=== PATIENT | male | born 1965 | race African-American/Black ===

== ENCOUNTER 2016-07-26 08:09 | Emergency (ER) | payer MEDICAID ==
[~2016-07-26] VITALS: Ht 175.3 cm; Wt 67.4 kg
[2016-07-26 08:09] VITALS: BP 132/84
== END 2016-07-26 09:14 | disposition home or self-care (01) ==
LOC: ED 09:00
DX: B35.3 Tinea pedis (principal); F12.10 Cannabis abuse, uncomplicated
CPT/HCPCS: 99283

== ENCOUNTER 2016-09-07 20:04 | Emergency (ER) | payer MEDICAID ==
[~2016-09-07] VITALS: Ht 175.3 cm; Wt 65.8 kg
[2016-09-07 20:06] VITALS: BP 121/79
[2016-09-07] MEDS ORDERED: OMEP20TA62 PO (20:41)
== END 2016-09-07 21:27 | disposition home or self-care (01) ==
LOC: ED 20:21
DX: R30.0 Dysuria (principal); R35.0 Frequency of micturition; K21.9 Gastro-esophageal reflux disease without esophagitis; Z59.0 Homelessness
CPT/HCPCS: 81001; 87086; 99284

== ENCOUNTER 2017-01-10 15:37 | Emergency (ER) | payer MEDICAID ==
[~2017-01-10] VITALS: Ht 175.3 cm; Wt 66.0 kg
[~2017-01-10 15:37] MED LIST: OMEP20TA62 PO
[2017-01-10 17:06] LABS: HEMATOCRIT 39.9 % (39.2-51.8); HEMOGLOBIN 13.6 g/dL (13.7-18.0); WHITE BLOOD COUNT 9.7 x10^3/uL (3.4-10)
[2017-01-10 17:17] LABS: BLOOD UREA NITROGEN 10 mg/dL (7-18)
[2017-01-10 17:20] LABS: ASPARTATE AMINO TRANSFERASE 20 U/L (15-37)
[2017-01-10 17:33] VITALS: BP 127/81
== END 2017-01-10 18:45 | disposition home or self-care (01) ==
LOC: ED 18:15
DX: R30.0 Dysuria (principal)
CPT/HCPCS: 36415; 80053; 81001; 85025; 87086; 99284

== ENCOUNTER → 2017-01-17 | Emergency (ER) | payer MEDICAID ==
[~2017-01-17] VITALS: Ht 175.3 cm; Wt 69.9 kg
[~2017-01-17] MED LIST changes: +AZITHROMYCIN 500 MG TABLET ONE; +AZITHROMYCIN 500 MG TABLET PO ONE; +CEFTRIAXONE 250 MG IM ONE
[2017-01-17 15:43] VITALS: BP 112/71
== END ==
LOC: ED 17:54
DX: N34.1 Nonspecific urethritis (principal)
CPT/HCPCS: 81003; 87491; 87591; 96372; 99284; J0696

== ENCOUNTER 2017-03-24 18:03 | Emergency (ER) | payer MEDICAID ==
[~2017-03-24] VITALS: Ht 175.3 cm; Wt 65.3 kg
[~2017-03-24 18:03] MED LIST changes: -AZITHROMYCIN 500 MG TABLET ONE; -AZITHROMYCIN 500 MG TABLET PO ONE; -CEFTRIAXONE 250 MG IM ONE
[2017-03-24 18:14] VITALS: BP 135/84
== END 2017-03-24 20:39 | disposition home or self-care (01) ==
LOC: ED 20:33
DX: M25.461 Effusion, right knee (principal)
CPT/HCPCS: 99281

== ENCOUNTER 2017-05-29 16:18 | Emergency (ER) | payer MEDICAID ==
[~2017-05-29] VITALS: Ht 175.3 cm; Wt 65.0 kg
[2017-05-29 16:19] VITALS: BP 156/86
[2017-05-29 16:57] LABS: BASOPHILS # (AUTO) 0.09 x10^3/uL (0-0.1); BASOPHILS % (AUTO) 1 % (0-1); EOSINOPHILS # (AUTO) 0.03 x10^3/uL (0-0.4); EOSINOPHILS % (AUTO) 0 % (1-7); LYMPHOCYTES # (AUTO) 1.85 x10^3/uL (1-3.4); LYMPHOCYTES % (AUTO) 15 % (22-44); MD NO; MEAN CORPUSCULAR HEMOGLOBIN 31.3 pg (27.5-34.5); MEAN CORPUSCULAR HGB CONC 34.1 g/dL (33.2-36.2); MEAN CORPUSCULAR VOLUME 91.8 fL (81-97); MEAN PLATELET VOLUME 8.9 fL (7.4-10.4); MONOCYTES # (AUTO) 1.33 x10^3/uL (0.2-0.8); MONOCYTES % (AUTO) 11 % (2-9); NEUTROPHILS # (AUTO) 8.79 x10^3/uL (1.8-6.8); NEUTROPHILS % (AUTO) 73 % (42-75); PLATELET COUNT 242 x10^3/uL (130-400); RED CELL DISTRIBUTION WIDTH 14.3 % (9.4-14.8)
[2017-05-29 17:01] LABS: ALBUMIN 3.7 g/dL (3.4-5.0); ANION GAP 10 mmol/L (5-15); CHLORIDE 108 mmol/L (98-107); CREATININE 0.92 mg/dL (0.7-1.3)
[2017-05-29] MEDS ORDERED: CEFTRIAXONE 250 MG IM ONE (17:30)
[2017-05-29] MEDS ORDERED: AZITHROMYCIN 500 MG TABLET PO ONE (17:30)
[2017-05-29 17:38] LABS: MICROSCOPIC NOT IND
[2017-05-29 17:40] LABS: CULTURE INDICATED? NO
[2017-05-29] MEDS ORDERED: AZITHROMYCIN 250 MG TABLET ONE (17:44)
[2017-05-29] MEDS ORDERED: CEFTRIAXONE 250 MG ONE (17:44)
[2017-05-29] MEDS ORDERED: LIDOCAINE-MPF 1%, 5ML ONE (17:45)
== END 2017-05-29 18:32 | disposition home or self-care (01) ==
LOC: ED 18:26
DX: R30.0 Dysuria (principal)
CPT/HCPCS: 36415; 80048; 81003; 82040; 85025; 87491; 87591; 96372; 99284; J0696

== ENCOUNTER 2017-06-13 00:47 | Emergency (ER) | payer MEDICAID ==
[~2017-06-13] VITALS: Ht 175.3 cm; Wt 68.4 kg
[~2017-06-13 00:47] MED LIST changes: +ATEN25TA PO; +RANI-276 PO
[2017-06-13 00:49] VITALS: BP 146/91
[2017-06-13] MEDS ORDERED: KETOROLAC 30 MG/1 ML IM ONE (01:30)
[2017-06-13] MEDS ORDERED: METHOCARBAMOL 750 MG TABLET PO ONE (01:30)
[2017-06-13] MEDS ORDERED: KETOROLAC 30 MG/1 ML ONE (01:47)
[2017-06-13] MEDS ORDERED: METHOCARBAMOL 750 MG TABLET ONE (01:47)
== END 2017-06-13 02:37 | disposition home or self-care (01) ==
LOC: ED 01:19
DX: S46.912A Strain of unspecified muscle, fascia and tendon at shoulder and upper arm level, left arm, initial encounter (principal); X58.XXXA Exposure to other specified factors, initial encounter; Y93.89 Activity, other specified; Y92.009 Unspecified place in unspecified non-institutional (private) residence as the place of occurrence of the external cause; Y99.8 Other external cause status
CPT/HCPCS: 96372; 99283; J1885

== ENCOUNTER 2017-07-24 12:44 | Emergency (ER) | payer MEDICAID ==
[~2017-07-24] VITALS: Ht 175.3 cm; Wt 63.0 kg
[2017-07-24 12:52] VITALS: BP 94/57
[2017-07-24] MEDS ORDERED: MIRT15TA4 PO (13:54)
[2017-07-24] MEDS ORDERED: AMLO5TAB2 PO (13:54)
[2017-07-24] MEDS ORDERED: CALC500T PO (13:54)
[2017-07-24] MEDS ORDERED: TRAM50TA2 PO (13:54)
[2017-07-24] MEDS ORDERED: POTA10TA11 PO (13:54)
[2017-07-24 14:17] LABS: MICROSCOPIC NOT IND
[2017-07-24 14:21] LABS: CULTURE INDICATED? NO
[2017-07-24 14:27] LABS: ALBUMIN 3.5 g/dL (3.4-5.0); ANION GAP 5 mmol/L (5-15); CALCIUM 8.6 mg/dL (8.5-10.1); CHLORIDE 108 mmol/L (98-107); CREATININE 1.45 mg/dL (0.7-1.3)
[2017-07-24 14:30] LABS: BASOPHILS # (AUTO) 0.03 x10^3/uL (0-0.1); BASOPHILS % (AUTO) 0 % (0-1); EOSINOPHILS # (AUTO) 0.08 x10^3/uL (0-0.4); EOSINOPHILS % (AUTO) 1 % (1-7); LYMPHOCYTES # (AUTO) 1.02 x10^3/uL (1-3.4); LYMPHOCYTES % (AUTO) 12 % (22-44); MD NO; MEAN CORPUSCULAR HEMOGLOBIN 31.6 pg (27.5-34.5); MEAN CORPUSCULAR VOLUME 92.7 fL (81-97); MEAN PLATELET VOLUME 8.9 fL (7.4-10.4); MONOCYTES # (AUTO) 0.84 x10^3/uL (0.2-0.8); MONOCYTES % (AUTO) 10 % (2-9); NEUTROPHILS # (AUTO) 6.87 x10^3/uL (1.8-6.8); NEUTROPHILS % (AUTO) 78 % (42-75); PLATELET COUNT 250 x10^3/uL (130-400); RED BLOOD COUNT 4.63 x10^6/uL (4.38-5.82); RED CELL DISTRIBUTION WIDTH 13.7 % (9.4-14.8)
== END 2017-07-24 15:27 | disposition home or self-care (01) ==
LOC: ED 14:14
DX: N34.2 Other urethritis (principal); I10 Essential (primary) hypertension
CPT/HCPCS: 36415; 74176; 80048; 81003; 82040; 85025; 99285

== ENCOUNTER 2017-09-06 08:14 | Emergency (ER) | payer MEDICAID ==
[~2017-09-06] VITALS: Ht 175.3 cm; Wt 64.0 kg
[~2017-09-06 08:14] MED LIST changes: +AMLO5TAB2 PO; +CALC500T PO; +MIRT15TA4 PO; +POTA10TA11 PO; +TRAM50TA2 PO
[2017-09-06 08:16] VITALS: BP 96/71
[2017-09-06 08:58] LABS: BASOPHILS # (AUTO) 0.02 x10^3/uL (0-0.1); BASOPHILS % (AUTO) 0 % (0-1); EOSINOPHILS # (AUTO) 0.25 x10^3/uL (0-0.4); EOSINOPHILS % (AUTO) 3 % (1-7); LYMPHOCYTES % (AUTO) 16 % (22-44); MD NO; MEAN CORPUSCULAR HEMOGLOBIN 30.6 pg (27.5-34.5); MEAN CORPUSCULAR HGB CONC 33.4 g/dL (33.2-36.2); MEAN CORPUSCULAR VOLUME 91.7 fL (81-97); MEAN PLATELET VOLUME 7.9 fL (7.4-10.4); MONOCYTES # (AUTO) 1.03 x10^3/uL (0.2-0.8); MONOCYTES % (AUTO) 13 % (2-9); NEUTROPHILS # (AUTO) 5.65 x10^3/uL (1.8-6.8); NEUTROPHILS % (AUTO) 68 % (42-75); PLATELET COUNT 398 x10^3/uL (130-400); RED BLOOD COUNT 3.53 x10^6/uL (4.38-5.82); RED CELL DISTRIBUTION WIDTH 13.7 % (9.4-14.8)
[2017-09-06 09:10] LABS: ALBUMIN 3.1 g/dL (3.4-5.0); ANION GAP 8 mmol/L (5-15); CALCIUM 8.5 mg/dL (8.5-10.1); CHLORIDE 107 mmol/L (98-107)
== END 2017-09-06 11:03 | disposition home or self-care (01) ==
LOC: ED 09:59
DX: M25.561 Pain in right knee (principal); M96.89 Other intraoperative and postprocedural complications and disorders of the musculoskeletal system; R60.1 Generalized edema; I10 Essential (primary) hypertension; Z88.5 Allergy status to narcotic agent
CPT/HCPCS: 36415; 80048; 82040; 85025; 93005; 99285

== ENCOUNTER 2017-11-20 11:16 | Emergency (ER) | payer MEDICAID ==
[~2017-11-20] VITALS: Ht 175.3 cm; Wt 65.3 kg
[~2017-11-20 11:16] MED LIST changes: -AMLO5TAB2 PO; +AMLO5TAB7 PO
[2017-11-20 11:19] VITALS: BP 107/73
[2017-11-20 12:15] LABS: BASOPHILS # (AUTO) 0.03 x10^3/uL (0-0.1); BASOPHILS % (AUTO) 0 % (0-1); EOSINOPHILS # (AUTO) 0.08 x10^3/uL (0-0.4); EOSINOPHILS % (AUTO) 1 % (1-7); LYMPHOCYTES # (AUTO) 1.76 x10^3/uL (1-3.4); LYMPHOCYTES % (AUTO) 22 % (22-44); MD NO; MEAN CORPUSCULAR HEMOGLOBIN 31.3 pg (27.5-34.5); MEAN CORPUSCULAR HGB CONC 34.2 g/dL (33.2-36.2); MEAN CORPUSCULAR VOLUME 91.7 fL (81-97); MEAN PLATELET VOLUME 8.8 fL (7.4-10.4); MONOCYTES # (AUTO) 0.82 x10^3/uL (0.2-0.8); MONOCYTES % (AUTO) 11 % (2-9); NEUTROPHILS # (AUTO) 5.17 x10^3/uL (1.8-6.8); NEUTROPHILS % (AUTO) 66 % (42-75); PLATELET COUNT 253 x10^3/uL (130-400); RED BLOOD COUNT 4.66 x10^6/uL (4.38-5.82); RED CELL DISTRIBUTION WIDTH 14.9 % (9.4-14.8)
[2017-11-20 12:25] LABS: ALBUMIN 3.5 g/dL (3.4-5.0); ANION GAP 6 mmol/L (5-15); CALCIUM 9.2 mg/dL (8.5-10.1); CHLORIDE 102 mmol/L (98-107)
[2017-11-20 12:31] LABS: CREATININE 1.18 mg/dL (0.7-1.3); TROPONIN I < 0.015 ng/mL (0.000-0.045)
== END 2017-11-20 13:12 | disposition home or self-care (01) ==
LOC: ED 12:41
DX: J20.9 Acute bronchitis, unspecified (principal); K21.9 Gastro-esophageal reflux disease without esophagitis; Z96.651 Presence of right artificial knee joint
CPT/HCPCS: 36415; 71045; 80048; 82040; 84484; 85025; 93005; 99285

== ENCOUNTER 2018-09-23 17:29 | Emergency (ER) | payer MEDICAID ==
[~2018-09-23] VITALS: Ht 175.3 cm; Wt 68.0 kg
[2018-09-23 17:37] VITALS: BP 88/55
== END 2018-09-23 18:35 | disposition home or self-care (01) ==
LOC: ED 18:20
DX: G89.11 Acute pain due to trauma (principal); R07.89 Other chest pain; M62.838 Other muscle spasm; S49.92XA Unspecified injury of left shoulder and upper arm, initial encounter; H60.502 Unspecified acute noninfective otitis externa, left ear; K21.9 Gastro-esophageal reflux disease without esophagitis; F17.200 Nicotine dependence, unspecified, uncomplicated; V49.59XA Passenger injured in collision with other motor vehicles in traffic accident, initial encounter; Y93.89 Activity, other specified; Y92.410 Unspecified street and highway as the place of occurrence of the external cause; Y99.8 Other external cause status
CPT/HCPCS: 99283

== ENCOUNTER 2020-01-21 16:51 | Emergency (ER) | payer SELFPAY ==
[~2020-01-21] VITALS: Ht 175.3 cm; Wt 83.8 kg
[~2020-01-21 16:51] MED LIST changes: +AMLO-150 PO; -AMLO5TAB7 PO; -CALC500T PO; +CALC500T29 PO; +MIRT-34 PO; -MIRT15TA4 PO; -RANI-276 PO; +RANI-460 PO
--- NOTE | 2020-01-21 19:13 | NUR ---
SEEN AND EXAMINED BY DR ISSA IN TRIAGE ROOM. PATIENT DISCHARGED WITH INSTRUCTIONS.
[2020-01-21 19:17] VITALS: BP 100/63
== END 2020-01-21 19:19 | disposition home or self-care (01) ==
LOC: ED 18:00
DX: L98.9 Disorder of the skin and subcutaneous tissue, unspecified (principal); I10 Essential (primary) hypertension; K21.9 Gastro-esophageal reflux disease without esophagitis; F17.210 Nicotine dependence, cigarettes, uncomplicated; Z48.01 Encounter for change or removal of surgical wound dressing
CPT/HCPCS: 99281; 99406